=== PATIENT | female | born 1980 | race Caucasian/White ===

== ENCOUNTER 2021-07-04 04:26 | Day surgery (SDC) | payer OTHER ==
[2021-07-04 04:46] VITALS: BMI 22.8
[2021-07-04] MEDS ORDERED: hydrALAZINE 20 MG/ML VIAL SLOW IVP PRN (05:31)
[2021-07-04 06:23] LABS: ALT (SGPT) 8 U/L (8-55); AST (SGOT) 40 U/L (5-34); Albumin 2.8 g/dL (3.5-5.0); Alkaline Phosphatase 194 U/L (40-110); Anion Gap 14 mmol/L (10-20); BUN (Urea Nitrogen) 10 mg/dL (7.0-18.7); Bilirubin, Total 0.3 mg/dL (0.2-1.2); Calc. Creatinine Clearance 117 mL/min (70-130); Calcium 8.2 mg/dL (7.8-10.44); Carbon Dioxide 21 mmol/L (22-29); Chloride 106 mmol/L (98-107); Globulin 2.8 g/dL (2.4-3.5); Glucose 79 mg/dL (70-105); Potassium 3.6 mmol/L (3.5-5.1); Protein, Total 5.6 g/dL (6.0-8.3); Sodium 137 mmol/L (136-145)
[2021-07-04 06:31] LABS: Hemoglobin 9.1 g/dL (12.0-15.5); Mean Corpuscular HGB CONC 33.6 g/dL (32.0-36.0); Mean Corpuscular Hemoglobin 29.4 pg (27.0-33.0); Mean Corpuscular Volume 87.7 fl (81.6-98.3); Mean Platelet Volume 12.1 fl (7.4-10.4); Platelet Count 230 10x3/uL (150-450); RBC Distribution Width 13.3 % (11.5-14.5); Red Blood Cell (RBC) Count 3.09 10x6/uL (3.90-5.03); White Blood Cell (WBC) Count 12.9 10x3/uL (3.5-10.5)
[2021-07-04 06:32] LABS: MDiff Complete? YES
[2021-07-04 06:33] LABS: Band 3 % (5-11); Lymphocytes 23 % (21-51); Monocytes 4 % (0-10); Neutrophil 70 % (42-75)
[2021-07-04 06:35] LABS: Platelet Morphology Comment Appears Adequate; RBC Morphology Normal
[2021-07-04 08:05] LABS: Amphetamine Detected (NotDetected); Barbiturates Screen Not Detected (NotDetected); Benzodiazepine Screen Not Detected (NotDetected); Cocaine Metabolite Screen Not Detected (NotDetected); Methadone Not Detected (NotDetected); Methamphetamine Detected (NotDetected); Opiate Screen Not Detected (NotDetected); Oxycodone Screen Not Detected (NotDetected); Phencyclidine (PCP) Not Detected (NotDetected); THC/Cannabinoid Screen Not Detected (NotDetected); Tricyclic Screen Not Detected (NotDetected)
[2021-07-04 08:12] LABS: Bilirubin Neg (Negative); Blood, Urine 150 (Negative); Clarity Clear (Clear); Glucose, Urine (Dipstick) Normal (Negative); Ketone, Urine Negative (Negative); Leukocyte 25 (Negative); Nitrite Negative (Negative); Protein, Urine (Dipstick) Negative (Neg-Trace); Urobilinogen Normal mg/dL (Less than 2)
[2021-07-04 08:15] LABS: Creatinine, Urine 20.48 mg/dL (47-110); Protein, Urine Random Quant Less than 10 mg/dL (1-14); Urine Culture Reflex No No
[2021-07-04 08:30] LABS: Bacteria/HPF 1+ HPF (None Seen); RBC/HPF 0-3 HPF (0-3); Squamous Epithelial 0-3 HPF (0-3); WBC/HPF 0-3 HPF (0-3)
[2021-07-04] MEDS ORDERED: Acetaminophen 500 MG TAB PO SCH (10:30)
== END 2021-07-04 20:50 | disposition home or self-care (01) ==
LOC: EEVIPCON 04:26 → CSHLD/OP 04:26
PROVIDERS: ATTEND Obstetrics & Gynecology
DX: O9A.213 Injury, poisoning and certain other consequences of external causes complicating pregnancy, third trimester (principal); S02.5XXA Fracture of tooth (traumatic), initial encounter for closed fracture; O09.33 Supervision of pregnancy with insufficient antenatal care, third trimester; O99.343 Other mental disorders complicating pregnancy, third trimester; F30.9 Manic episode, unspecified; O22.43 Hemorrhoids in pregnancy, third trimester; O99.891 Other specified diseases and conditions complicating pregnancy; R03.0 Elevated blood-pressure reading, without diagnosis of hypertension; O99.333 Smoking (tobacco) complicating pregnancy, third trimester; F17.210 Nicotine dependence, cigarettes, uncomplicated; O09.523 Supervision of elderly multigravida, third trimester; O36.8130 Decreased fetal movements, third trimester, not applicable or unspecified; Z3A.37 37 weeks gestation of pregnancy; X58.XXXA Exposure to other specified factors, initial encounter
CPT/HCPCS: 76815; 80053; 80306; 81001; 82570; 84156; 85025; 87081; 87086; 99282

== ENCOUNTER 2021-07-04 23:00 | Emergency (ER) | payer OTHER ==
[2021-07-05] MEDS ORDERED: Lidocaine Viscous Sol 2% 15 ml UD Cup ONE (00:10)
[2021-07-05] MEDS ORDERED: Acetaminophen 500 MG TAB ONE (00:11)
== END 2021-07-04 23:44 | disposition home or self-care (01) ==
LOC: CSHERS 23:00
DX: O99.891 Other specified diseases and conditions complicating pregnancy (principal); K14.0 Glossitis; O99.513 Diseases of the respiratory system complicating pregnancy, third trimester; J45.909 Unspecified asthma, uncomplicated; O99.333 Smoking (tobacco) complicating pregnancy, third trimester; F17.210 Nicotine dependence, cigarettes, uncomplicated; Z3A.38 38 weeks gestation of pregnancy
CPT/HCPCS: 99283

== ENCOUNTER 2021-07-17 00:04 | Day surgery (SDC) | payer OTHER ==
[2021-07-17 00:13] VITALS: BMI 24.4
[2021-07-17] MEDS ORDERED: hydrALAZINE 20 MG/ML VIAL SLOW IVP PRN (00:41)
[2021-07-17 00:55] LABS: Fetal Membranes Rupture No Membranes Rupture (No Rupture)
[2021-07-17] MEDS ORDERED: Famotidine/PF 20 mg/2ml Vial ONE (01:26)
[2021-07-17] MEDS ORDERED: Famotidine 20 MG TAB PO SCH (01:30)
[2021-07-17] MEDS ORDERED: Famotidine/PF 20 mg/2ml Vial SLOW IVP SCH (01:30)
[2021-07-17 02:02] LABS: HBSAg Index 0.14 S/CO (0-0.99); HIV (1/2) Antibody/Antigen Non-Reactive (NonReactive); HIV 1/2 INDEX 0.06 S/CO (<1.00); Hep B Surf Ag Non-Reactive S/CO (NonReactive); Syphilis Antibody Nonreactive (Nonreactive); Syphilis Antibody Index 0.06 S/CO (<1.00 Non-Reactive)
[2021-07-17 15:23] LABS: Hep C IgG Ab Non-Reactive (NonReactive); Hep C Index 0.12 S/CO (0-0.79)
== END 2021-07-17 01:52 | disposition home or self-care (01) ==
LOC: CSHLD/OP 00:04
PROVIDERS: ATTEND Obstetrics & Gynecology
DX: O47.1 False labor at or after 37 completed weeks of gestation (principal); O99.323 Drug use complicating pregnancy, third trimester; F15.11 Other stimulant abuse, in remission; O99.613 Diseases of the digestive system complicating pregnancy, third trimester; K21.9 Gastro-esophageal reflux disease without esophagitis; O99.333 Smoking (tobacco) complicating pregnancy, third trimester; F17.210 Nicotine dependence, cigarettes, uncomplicated; O09.523 Supervision of elderly multigravida, third trimester; Z3A.38 38 weeks gestation of pregnancy
CPT/HCPCS: 36415; 84112; 86762; 86780; 86803; 87340; 87389; 99285; S0028

== ENCOUNTER 2023-01-09 11:00 | Inpatient (IN) | payer OTHER ==
[2023-01-09 11:37] VITALS: BMI 26.6
[2023-01-09] MEDS ORDERED: Tranexamic Acid 1,000 MG/10 ML VIAL IVP PRN (12:39)
[2023-01-09] MEDS ORDERED: Ibuprofen 800 MG TAB PO PRN (12:39)
[2023-01-09] MEDS ORDERED: fentaNYL 50 mcg/mL 1 mL Vial SLOW IVP PRN (12:39)
[2023-01-09] MEDS ORDERED: Misoprostol 100 MCG TAB VAG SCH (12:39)
[2023-01-09] MEDS ORDERED: Ondansetron PF 4 MG/2 ML Vial IVP PRN ×2 (12:39→12:55)
[2023-01-09] MEDS ORDERED: Oxytocin 30 units/NS 500 ML 500 ML IV SCH ×2 (12:39)
[2023-01-09] MEDS ORDERED: Diphenoxylate HCl/Atropine Tablet PO PRN ×2 (12:39)
[2023-01-09] MEDS ORDERED: Misoprostol 200 MCG TAB PR PRN (12:39)
[2023-01-09] MEDS ORDERED: Acetaminophen 500 MG TAB PO PRN (12:39)
[2023-01-09] MEDS ORDERED: hydrALAZINE 20 MG/ML VIAL SLOW IVP PRN ×2 (12:39→22:29)
[2023-01-09] MEDS ORDERED: Methylergonovine 0.2 MG/ML VIAL IM PRN (12:39)
[2023-01-09] MEDS ORDERED: HYDROcodone/Acetaminophen 5/325 mg Tablet PO PRN ×2 (12:39)
[2023-01-09] MEDS ORDERED: Promethazine HCl 25 MG/ML VIAL IM PRN ×2 (12:39→12:55)
[2023-01-09] MEDS ORDERED: Carboprost 250 MCG/ML AMP IM PRN (12:39)
[2023-01-09] MEDS ORDERED: Lidocaine 1% (PF) 30 ML VIAL SC PRN (12:39)
[2023-01-09] MEDS ORDERED: fentaNYL/Ropivacaine Epidural 100 ML ONE (12:45)
[2023-01-09] MEDS ORDERED: Moisturizing Cream (Eucerin) 113 GM JAR TOP PRN (12:55)
[2023-01-09] MEDS ORDERED: Naloxone HCl 0.4 mg/ml Vial IVP PRN ×2 (12:55)
[2023-01-09] MEDS ORDERED: ePHEDrine Sulfate 50 MG/10 ML VIAL SLOW IVP PRN (12:55)
[2023-01-09] MEDS ORDERED: Lactated Ringer's 500 ML IV PRN (12:55)
[2023-01-09] MEDS ORDERED: diphenhydrAMINE 50 MG/ML VIAL IVP PRN (12:55)
[2023-01-09] MEDS ORDERED: Acetaminophen 325 MG TAB PO PRN (12:55)
[2023-01-09] MEDS ORDERED: Communication Order-Pharmacy FS SCH (13:00)
[2023-01-09] MEDS ORDERED: fentaNYL 2 mcg/Ropivacaine 0.2% Epidural 100 ML CADD EPIDURAL SCH (13:00)
[2023-01-09 13:10] LABS: Hematocrit 29.2 % (34.9-44.5); Hemoglobin 9.5 g/dL (12.0-15.5); Mean Corpuscular HGB CONC 32.5 g/dL (32.0-36.0); Mean Corpuscular Hemoglobin 28.8 pg (27.0-33.0); Mean Corpuscular Volume 88.5 fl (81.6-98.3); Mean Platelet Volume 11.9 fl (7.4-10.4); Platelet Count 227 10x3/uL (150-450); RBC Distribution Width 13.8 % (11.5-14.5); White Blood Cell (WBC) Count 9.4 10x3/uL (3.5-10.5)
[2023-01-09 13:46] LABS: Amphetamine Not Detected (NotDetected); Barbiturates Screen Not Detected (NotDetected); Benzodiazepine Screen Not Detected (NotDetected); Cocaine Metabolite Screen Not Detected (NotDetected); Methadone Not Detected (NotDetected); Methamphetamine Not Detected (NotDetected); Opiate Screen Not Detected (NotDetected); Oxycodone Screen Not Detected (NotDetected); Phencyclidine (PCP) Not Detected (NotDetected); THC/Cannabinoid Screen Not Detected (NotDetected); Tricyclic Screen Not Detected (NotDetected)
[2023-01-09 15:19] LABS: Syphilis Antibody Nonreactive (Nonreactive); Syphilis Antibody Index 0.06 S/CO (<1.00 Non-Reactive)
[2023-01-09 15:21] LABS: Hep B Surf Ag - L&D Non-Reactive S/CO (NonReactive)
[2023-01-09] MEDS: Lactated Ringer's 1,000 ML IV SCH (16:58)
[2023-01-09] MEDS ORDERED: Bisacodyl 10 MG SUPP PR PRN (22:29)
[2023-01-09] MEDS ORDERED: Milk Of Magnesia 30 ML UDCUP PO PRN (22:29)
[2023-01-09] MEDS ORDERED: Preparation H Ointment 28 GM TUBE PR PRN (22:29)
[2023-01-09] MEDS ORDERED: Lanolin Ointment 7 GM TUBE TOP PRN (22:29)
[2023-01-09] MEDS ORDERED: Benzocaine-Menthol 82.5 ML CAN TOP PRN (22:29)
[2023-01-09] MEDS ORDERED: traMADol HCl 50 MG TAB PO PRN (22:29)
[2023-01-09] MEDS ORDERED: Boostrix 0.5 ML (Tdap) VIAL (>/=7 yrs of age) IM ONE (22:29)
[2023-01-09] MEDS ORDERED: diphenhydrAMINE 25 MG CAP PO PRN (22:29)
[2023-01-10] MEDS ORDERED: hydrALAZINE 20 MG/ML VIAL ONE (00:25)
[2023-01-10] MEDS ORDERED: Magnesium Sulfate 20 gm/500 ml 20 GM/500 ML BAG ONE (00:25)
[2023-01-10] MEDS ORDERED: Magnesium Sulfate 20 gm/500 ml 20 GM/500 ML BAG IVPB SCH (01:45)
[2023-01-10] MEDS ORDERED: Lorazepam 2 MG/ML VIAL SLOW IVP PRN (01:45)
[2023-01-10] MEDS ORDERED: Labetalol HCl 100 MG/20 ML VIAL SLOW IVP PRN ×2 (01:45)
[2023-01-10] MEDS ORDERED: Calcium Gluc 4.6 MEQ/10 ML (100 MG/ML) SLOW IVP PRN (01:45)
[2023-01-10] MEDS ORDERED: Magnesium Sulfate 20 gm/500 ml 4 GM/100 ML BAG IVPB SCH (01:45)
[2023-01-10] MEDS ORDERED: hydrALAZINE 20 MG/ML VIAL SLOW IVP PRN ×2 (01:45)
[2023-01-10] MEDS ORDERED: HYDROcodone/Acetaminophen 5/325 mg Tablet PO PRN (01:47)
[2023-01-10 04:21] LABS: Bilirubin Neg (Negative); Blood, Urine 150 (Negative); Clarity Clear (Clear); Glucose, Urine (Dipstick) Normal (Negative); Ketone, Urine Negative (Negative); Leukocyte 25 (Negative); Nitrite Negative (Negative); Protein, Urine (Dipstick) 15 mg/dl (Neg-Trace); Urobilinogen Normal mg/dL (Less than 2)
[2023-01-10 04:31] LABS: Bacteria/HPF None Seen HPF (None Seen); CAUTI Indications for Culture Pregnancy; Squamous Epithelial 0-3 HPF (0-3); WBC/HPF 0-3 HPF (0-3)
[2023-01-10 04:33] LABS: Urine Culture Reflex Yes Yes
[2023-01-10 04:37] LABS: Creatinine, Urine Less than 20.00 mg/dL (47-110); Protein, Urine Random Quant Less than 10 mg/dL (1-14)
[2023-01-10] MEDS: Ibuprofen 800 MG TAB PO SCH ×3 (06:15→21:48)
[2023-01-10] MEDS: Ferrous Sulfate 325 MG TAB PO SCH ×2 (08:08→21:35)
[2023-01-10] MEDS: Docusate 100 MG CAP PO SCH ×2 (08:09→21:48)
[2023-01-10] MEDS: Prenatal Vitamin 1 TAB PO SCH (08:09)
[2023-01-10] MEDS: HYDROcodone/Acetaminophen 5/325 mg Tablet PO PRN ×3 (08:09→20:04)
[2023-01-10] MEDS ORDERED: NIFEdipine XL 30 MG ER.TAB PO SCH (09:00)
[2023-01-10] MEDS: NIFEdipine XL 30 MG ER.TAB PO SCH (21:48)
[2023-01-10] MEDS: Lactated Ringer's 1,000 ML IV SCH (23:37)
[2023-01-11] MEDS: Ibuprofen 800 MG TAB PO SCH (06:17)
[2023-01-11 08:38] VITALS: BP 119/72; TEMP 98.8
[2023-01-11] MEDS: NIFEdipine XL 30 MG ER.TAB PO SCH (08:39)
[2023-01-11] MEDS: HYDROcodone/Acetaminophen 5/325 mg Tablet PO PRN (08:39)
[2023-01-11] MEDS: Prenatal Vitamin 1 TAB PO SCH (08:39)
[2023-01-11] MEDS: Ferrous Sulfate 325 MG TAB PO SCH (08:41)
[2023-01-11] MEDS: Docusate 100 MG CAP PO SCH (08:41)
== END 2023-01-11 12:50 | disposition home or self-care (01) | DRG 807 ==
LOC: CSHLD 11:00 → CSHPP 01-10 23:15
PROVIDERS: ADMIT Obstetrics & Gynecology; ATTEND Obstetrics & Gynecology
PROC: 10D07Z5 Extraction of Products of Conception, High Forceps, Via Natural or Artificial Opening (ICD-10-PCS; principal; 2023-01-09)
PROC: 3E033XZ Introduction of Vasopressor into Peripheral Vein, Percutaneous Approach (ICD-10-PCS; 2023-01-09)
PROC: 3E0334Z Introduction of Serum, Toxoid and Vaccine into Peripheral Vein, Percutaneous Approach (ICD-10-PCS; 2023-01-11)
DX: O98.52 Other viral diseases complicating childbirth (principal); Z37.0 Single live birth; A60.00 Herpesviral infection of urogenital system, unspecified; O70.0 First degree perineal laceration during delivery; Z3A.39 39 weeks gestation of pregnancy
CPT/HCPCS: 51702; 80306; 81001; 82570; 84156; 85027; 85461; 86780; 86850; 86900; 86901; 87086; 87340; 90384; 96372; J0360; J2405; J2590; J3475; J7120